=== PATIENT | male | born 1960 | race Caucasian/White ===

== ENCOUNTER 2016-08-25 09:41 | Day surgery (SDC) | payer BC ==
[~2016-08-25] VITALS: Ht 185.4 cm; Wt 97.9 kg
[~2016-08-25 09:41] MED LIST: ATOR10TA64 PO; LIDOCAINE 1% (10mg/ml) 2ml SDV INJ ONE; LR 1,000 ML IV SCH
--- OUTSIDE RECORDS SUMMARY | 2016-08-25 09:44 | XMS REPORT | CCD ---
Author Author GREYSON ENGEL Organization Unknown Address [address], [place] [id number] Phone 0 Care Team Providers Care Accounts Payable Specialist Name Role Phone JOHN OSNI Attending Physician [phone] Vital Signs Unknown. Allergies Unknown. Procedures Unknown. History of Immunizations Unknown. Problems Unknown. Results Unknown. Medications Unknown. Medications Administered Unknown. Encounters Unknown. Social History Smoking Status Code Start Date End Date Never smoker [id number] Patient Decision Aids Unknown. Instructions You were admitted to [facility] on 06/20/2013. Should you have any questions prior to discharge, please contact a member of your healthcare team. If you have left the hospital and have any questions, please contact your primary care physician. Chief Complaint and Reason For Visit Chief Complaint Date of Onset PTH RECURRING Function Status Unknown. Plan of Care Unknown. Referral/Transition of Care Unknown.
--- OUTSIDE RECORDS SUMMARY | 2016-08-25 09:44 | XMS REPORT | Summary of Care ---
Author Author Sofy Dixon Organization Unknown Address [address], [place] [id number] Phone Unavailable Care Team Providers Care Parboiler Name Role Phone Sofy Dixon Unavailable Unavailable Missael Francisco, Kristine Unavailable Unavailable Leo Fuentes Unavailable Unavailable Unavailable Unavailable Functional Status Name Dates Details Functional status health issues are not documented Status: Name Dates Details Cognitive status health issues are not documented Status: Problems Name Dates Details Hypertension (401.9, I10) Status: Active Palpitations (785.1, R00.2) Status: Active Obstructive sleep apnea (327.23, G47.33) Status: Active Medications Name Dates Details Supplies Nocturnal CPAP=7 cm H2O Quantity: 1 Missael Francisco, John Carmona * Start Active Supplies CPAP repair, services, and supplies (dx=G47.33)Mask, headgear, filters, heated tubing, chinstrap * Quantity: 1 Refills: 0 Sofy Dixon * Start Active Allergies and Adverse Reactions Name Dates Details No Known Drug Allergies (Allergy) Status: Active Procedures Procedure Dates Details History of Tonsillectomy Over Age 10 Completed: 27-Aug-2009 Procedures not documented Immunization Name Dates Details Immunizations not documented Family History Name Dates Details Family history of Sleep Apnea Status: Active Family history of Pacemaker Placement Status: Active Social History Name Dates Details - Status: Name Dates Details Never smoker Vital Signs Date Test Result Details 09:28 BP Systolic 116 mm[Hg] Status: Comments: Location: ; Position: BP Diastolic 75 mm[Hg] Status: Comments: Location: ; Position: Heart Rate 55 /min Status: Comments: Location: ; Weight 221 lb Status: Physical Findings 97 Status: Comments: O2 Saturation Body Mass Index Calculated 29.16 kg/m2 Status: Body Surface Area Calculated 2.25 m2 Status: Results Date Description Value Details Results not documented Plan of Care Name Dates Details Planned Observations Planned Goals not documented Planned Encounters Appointment; Provider: Jennie Burden On 08:00 Interventions Provided Medication Changes* Supplies - Renew with Changes Instructions Name Dates Details Instructions not documented Encounters Appointment; Sofy Ragsdale P.A. Encounter Diagnosis: Problem not documented On 09:00 Appointment; Sofy Ragsdale P.A. Encounter Diagnosis: Problem not documented On 08:45
--- OUTSIDE RECORDS SUMMARY | 2016-08-25 09:44 | XMS REPORT | Continuity of Care Document ---
Author Author [facility] Organization [facility] Address Unknown Phone Unavailable Allergies Medications Problems Procedures Results Encounters ACCT No. Visit Date/Time Discharge Status Pt. Type Provider Facility Loc./Unit Complaint [id number] 08/18/2013 13:27:00 08/18/2013 23 :59:59 [facility] Outpatient
--- OUTSIDE RECORDS SUMMARY | 2016-08-25 09:44 | XMS REPORT | CCD ---
Author Author ARIANNA SANTIZO Organization Unknown Address [address], [place] [id number] Phone 0 Care Team Providers Care Residential Care Officer Name Role Phone Leroy MARTELL Attending Physician 0 GIGI BARTLETT Primary Surgeon 0 Vital Signs Unknown or Not Available. Allergies Allergy Code Allergy Type Reaction Status No Known Drug Allergies 0 No known drug allergies Active Procedures Unknown or Not Available. History of Immunizations Unknown or Not Available. Problems Unknown or Not Available. Results Unknown or Not Available. Medications Unknown or Not Available. Medications Administered Unknown or Not Available. Encounters Unknown or Not Available. Social History Smoking Status Code Start Date End Date Never smoker [id number] Patient Decision Aids Unknown or Not Available. Discharge Instructions You were admitted to [facility] on 12/02/2013. You were discharged from [facility] on 12/02/2013. Should you have any questions prior to discharge, please contact a member of your healthcare team. If you have left the hospital and have any questions, please contact your primary care physician. Chief Complaint and Reason For Visit Chief Complaint Date of Onset Laceration Function Status Unknown or Not Available. Plan of Care Unknown or Not Available. Referral/Transition of Care Unknown or Not Available.
--- OUTSIDE RECORDS SUMMARY | 2016-08-25 09:45 | XMS REPORT | Continuity of Care Document ---
Author Author Panchito Dutton MA Ambulatory Address Unknown Phone Unavailable Payers Payer name Insurance type Covered alliance party ID Authorization(s) Unknown Problems Condition Effective Dates (start - stop) Clinical Status Tinnitus - *Acute Bronchitis, Acute - *Acute Billiard Table Mechanic's permit PE (physical examination) - *Routine Family History Family Member Diagnosis Age At Onset Status Father (Unknown) Cancer - colon Yes Mother (Unknown) Hypertension Yes Sister (Unknown) Cancer - breast Yes Social History Social History Element Description Quantity Unknown Allergies, Adverse Reactions, Alerts Substance Reaction Severity Status Unknown Medications Medication Instructions Dosage Effective Dates (start - stop) Status amoxicillin 500 mg capsule take 1 capsule (500MG) by oral route every 12 hours 500 MG - No Longer Active Alavert 10 mg tablet take 1 tablet (10MG) by oral route every day 10 MG - No Longer Active prednisone 20 mg tablet take 1 tablet (20MG) by oral route every day for 5 days 20 MG - No Longer Active Tessalon 200 mg capsule take 1 capsule (200MG) by oral route 3 times every day as needed 200 MG - No Longer Active Alavert 10 mg tablet take 1 tablet (10MG) by oral route every day as needed - Active Immunizations Vaccine Date Status Comments Unknown Results Test Name Date and Time Measure Units Reference Range Abnormal Flag Comments Unknown Vital Signs Date / Time: Height Weight Pulse Rate Blood Pressure Temperature :38:00 74.50 in 231.00 lbs 68 /min 114/78 mm[Hg] 97.0 F Procedures Procedure Date Unknown Encounters Encounter Location Date Patient Visit [facility] Patient Visit [facility] Advance Directives Directive Effective Date Unknown
--- OUTSIDE RECORDS SUMMARY | 2016-08-25 09:45 | XMS REPORT | Summary of Care ---
Author Author Sofy Dixon Organization Unknown Address [address], [place] [phone] Phone Unavailable Care Team Providers Care Cosmetic Counselor Name Role Phone Soyf Dixon Unavailable Unavailable Missael Francisco, Kristine Unavailable Unavailable Leo Fuentes PP Unavailable Unavailable Unavailable Functional Status Functional Status Health Issues* Name Dates Details Functional status health issues are not documented Status: Cognitive Status Health Issues* Name Dates Details Cognitive status health issues are not documented Status: Problems Name Dates Details Hypertension (401.9, I10) Status: Active Palpitations (785.1, R00.2) Status: Active Obstructive sleep apnea (327.23, G47.33) Status: Active Medications Name Dates Details Supplies Nocturnal CPAP=7 cm H2O Quantity: 1 John Canas M.D.* Started ActiveSupplies CPAP repair, services, and supplies (cw=966.23)Mask, headgear, filters, heated tubing, chinstrap * Quantity: 1 Refills: 0 Sofy Ragsdale P.A.* Started Active Allergies and Adverse Reactions Name Dates Details No Known Drug Allergies Status: Active Procedures Procedure Dates Details History of Tonsillectomy Over Age 10 Completed:27-Aug-2009 Procedures not documented Immunization Name Dates Details Immunizations not documented Family History Father* Name Dates Details Family history of Sleep Apnea Status: Active Family history of Pacemaker Placement Status: Active Social History Name Dates Details Smoking Status* Never smoker Vital Signs Date Test Result Details No Known Vitals to report Results Date Description Value Details Results not documented Plan of Care Planned Observations* Name Dates Details Planned Goals not documented Goal Planned Encounters* Appointment; Provider: Sofy Ragsdale On 08:45 * Appointment; Provider: Dominic Tadeo On 17:30 * Appointment; Provider: Davi Chowdhury On 07:30 Instructions * Instructions not documented Encounters Appointment; Sofy Ragsdale Encounter Diagnosis: Problem not documented On 08:45
--- OUTSIDE RECORDS SUMMARY | 2016-08-25 09:45 | XMS REPORT | CCD ---
Author Author ARIANNA SANTIZO Organization Unknown Address [address], [place] [id number] Phone 0 Care Team Providers Care It Admin Name Role Phone LANEY HUBBARD Attending Physician 0 Vital Signs Unknown or Not Available. Allergies Allergy Code Allergy Type Reaction Status No Known Drug Allergies 0 No known drug allergies Active Procedures Unknown or Not Available. History of Immunizations Unknown or Not Available. Problems Unknown or Not Available. Results Unknown or Not Available. Active Medications Unknown or Not Available. Medications Administered During Visit Unknown or Not Available. Encounters Unknown or Not Available. Social History Smoking Status Code Start Date End Date Never smoker [id number] Patient Decision Aids Unknown or Not Available. Discharge Instructions [facility] were admitted to [facility] on 08/03/2014. Should you have any questions prior to discharge, please contact a member of your healthcare team. If you have left the hospital and have any questions, please contact your primary care physician. Chief Complaint and Reason For Visit Chief Complaint Date of Onset PTH RECURRING Function Status Unknown or Not Available. Plan of Care Unknown or Not Available. Referral/Transition of Care Unknown or Not Available.
--- OUTSIDE RECORDS SUMMARY | 2016-08-25 09:45 | XMS REPORT | Summary of Care ---
Author Author Sofy Dixon Organization Unknown Address [address], [place] [id number] Phone Unavailable Care Team Providers Care Combination Man Name Role Phone Sofy Dixon Unavailable Unavailable [...] Started ActiveSupplies CPAP repair, services, and supplies (xa=387.23)Mask, headgear, filters, heated tubing, chinstrap * Quantity: 1 Refills: 0 Sofy Ragsdale* Started Active Allergies and Adverse Reactions Name [...] smoker Vital Signs Date Test Result Details 08:50 BP Systolic 115 mm[Hg] Status: BP Diastolic 57 mm[Hg] Status: Heart Rate 64 /min Status: Weight 221 lb Status: O2 SAT 97 % Status: Body Mass Index Calculated 29.16 kg/m2 Status: Body Surface Area Calculated 2.25 m2 Status: Results Date Description Value Details Results not documented Plan of Care Planned Observations* Name Dates Details Planned Goals not documented Goal Planned Encounters* Appointment; Provider: Sofy Ragsdale On 08:00 * Appointment; Provider: Dominic Tadeo On 17:30 * Appointment; Provider: Davi Chowdhury On 07:30 Instructions * Instructions not documented Encounters Appointment; Sofy Ragsdale Encounter Diagnosis: Problem not documented On 08:45 Appointment; Sofy Ragsdale Encounter Diagnosis: Problem not documented On 08:45
--- OUTSIDE RECORDS SUMMARY | 2016-08-25 09:45 | XMS REPORT | Referral Summary ---
Author Author [facility] Organization [facility] Address Unknown Phone Unavailable Care Team Providers Care Packaging Technician Name Role Phone Leo Fuentes Primary Care Physician [phone] Encounter Date(s): 05/23/16 - 05/23/16 [facility], [address] [place] [id number] Discharge Diagnosis: Acute bacterial bronchitis Discharge Diagnosis: Tinea cruris Discharge Disposition: 01-Home or Self Care Attending Physician: Leo Fuentes DO Admitting Physician: Leo Fuentes DO Vital Signs Most recent to 1 oldest [Reference Range]: Temperature Tympanic 36.6 degC [36.6-38.1 degC] (05/23/16 3:02 PM) Peripheral Pulse 68 bpm Rate [60-100 bpm] (05/23/16 3:02 PM) Respiratory Rate 18 br/min [14-20 br/min] (05/23/16 3:02 PM) Blood Pressure 130/72 mmHg [90-140/60-90 mmHg] (05/23/16 3:02 PM) SpO2 98 % (05/23/16 3:02 PM) Problem List Condition Effective Dates Status Health Status Informant Headache, Active migraine(Confirmed) Sleep Active apnea(Confirmed) Allergies, Adverse Reactions, Alerts No Known Medication Allergies Medications predniSONE 20 mg oral tablet 40 mg 2 tabs, Oral, Daily, X 5 days, # 10 tabs, 0 Refill(s), Pharmacy: [id number], 2 tabs Oral Daily,x5 days Start Date: 05/23/16 Stop Date: 05/28/16 Status: Ordered Zithromax 250 mg oral tablet 250 mg 1 tabs, Oral, Daily, as directed on package labeling, # 6 tabs, 0 Refill( s), Pharmacy: [facility], 1 tabs Oral Daily,Instr:as directed on package labeling Start Date: 05/23/16 Stop Date: 05/23/16 Status: Ordered Results No data available for this section Immunizations No data available for this section Procedures Procedure Date Related Diagnosis Body Site ACL Repair, bilateral knees Arthroscopy of knee Social History Social History Type Response Smoking Status Never smoker Assessment and Plan Extracted from: Title: Office Visit Note Author: TrevLeo granda Date: 05/23/16 Assessment/Plan 1.Tinea cruris 1. The rash along the buttock creases is consistent with tinea. 2. Recommended [id number] Lamisil application. 3. Follow-up for any new concerns. Acute bacterial bronchitis 1. Zithromax taken as directed for 5 days. 2. Prednisone 40 mg daily for 5 days. 3. Continue with Mucinex. Ordered: azithromycin, 250 mg 1 tabs, Oral, Daily, as directed on package labeling, # 6 tabs, 0 Refill(s), Pharmacy: [facility], 1 tabs Oral Daily,Instr :as directed on package labeling predniSONE, 40 mg 2 tabs, Oral, Daily, X 5 days, # 10 tabs, 0 Refill(s), Pharmacy: [facility], 2 tabs Oral Daily,x5 days Office Visit Level 4 Est [id number]
[2016-08-25 10:10] VITALS: BP 132/89; PULSE 71; RESP 14; TEMP 97.9; O2SAT 95; Ht 185.4 cm; Wt 97.9 kg
--- NOTE | 2016-08-25 10:34 | ANESPREOP ---
Anesthesia Record Date and Time DATE: 08/25/16 TIME: 10:32 Pre-Op Diagnosis Hx of Polyps, blood in stool Proposed Surgical Procedure EGD & COLONOSCOPY NPO since: Midnight Allergies: Coded Allergies: No Known Allergies (Unverified , 01/14/11) Ht/Wt/BMI Height: 6 ' 1.00 " Weight: 97.900 kg BMI: 28.5 kg/m2 Vital Signs Date Time Temp Pulse Resp B/P Pulse Ox O2 Delivery O2 Flow Rate FiO2 08/25/16 10:10 97.9 71 14 132/89 95 Room Air Medications Inpatient Medications Current Medications Medications (Trade) Dose Ordered Sig/Juancho Start Time Stop Time Status Last Admin Dose Admin Lactated Ringer's (Lactated Ringers) 1,000 ml @ 50 mls/hr Q20H 08/25/16 07:00 Atorvastatin Calcium (Atorvastatin Calcium) 10 Mg Tablet, 1 TAB PO HS, (Reported ) Last Taken: on 08/23/16 0800 Currently on Beta Jessica: No Medical/Surgical History Anesthesia PMH: Reports: Hyperlipidemia, Sleep Apnea (C-PAP), Denies: *Angina, *Diabetes, *Hypertension, *RI, Anesthesia Reactions (NO AIRWAY ISSUES), Arthritis, Asthma (HX SLEEP APNEA WITH USE OF CPAP AT NIGHT), Blood Transfusion Reac, CHF, COPD, CVA/Stroke/TIA, Cancer, Clotting Problems, Glaucoma, Hiatal Hernia, Malignant Hyperthermia, Pneumonia, Reflux, Renal Disease, Seizures, Thyroid Disease, Tuberculosis Smoking Status: Never smoker Has pt. smoked today?: No Use Chewing Tobacco?: No Second Hand Exposure: No Substance Use Type: does not use Alcohol Intake: none Past Surgical History Orthopedic Surgeries: Yes - BILAT KNEE SCOPES W/ ACL RECONSTRUCTION & Abdominal Surgeries: Genitourinary Surgeries: Cardiac Surgeries: Endocrine Surgeries: Reproductive Surgeries: Neurological Surgeries: Ear Surgeries: Nose Surgeries: Throat Surgeries: Yes - T&A Other Surgeries: Yes - COLONOSCOPY Anesthesia Adverse Reactions: FOUND none Family Hx of Anesthesia Advers: none Hx of Motion Sickness: No Pertinent Findings EKG Rhythm: Sinus Rhythm Physical Exam Respiratory: Lungs clear Cardiovascular: FOUND Regular rate, rhythm Airway Assessment Mallampati Score: II TMD: 3 Fingerbreadths Neck Extension: Good Overall Assessment: No Airway Concerns ASA: 2 Plan Anesthesia Plan: TIVA Discussion Discussed risks/options/alternatives of anesthesia and questions answered. Patient consents. Nursing pain assessment noted. Present: Spouse Attestation Statement Prior to the delivery of any anesthetic medication, I examined the patient, developed the plan, obtained the patient's consent and discussed the risk and benefits of the procedure with the patient/guardian. RUCHI VILA MANAGER [place] Aug 25, 2016 10:34
[2016-08-25] MEDS ORDERED: PROPOFOL 500mg 50 ML IV ONE (10:55)
[2016-08-25] MEDS ORDERED: ALFENTANIL 500mcg/ml - 2ml INJECTION ONE (10:55)
[2016-08-25] MEDS ORDERED: LIDOCAINE VISCOUS 2% Oral Soln 15ml UD ONE (11:10)
[2016-08-25] MEDS ORDERED: PROPOFOL 200mg 20 ML IV ONE (11:55)
[2016-08-25 12:15] VITALS: BP 96/50; PULSE 54; RESP 16; TEMP 98.1; O2SAT 98
--- NOTE | 2016-08-25 12:26 | GSPOSTPROC ---
Immediate Operative Note DATE: 08/25/16 TIME: 12:25 Postop Diagnosis: colon polyp, gastric polyps Surgical Procedure: EGD w/Biopsies, C-scope w/Polypectomy Surgeon: Jayda ASA: 2 MARIAN WADE MD Aug 25, 2016 12:26
[2016-08-25 12:30] VITALS: BP 100/60; PULSE 59; RESP 16; O2SAT 99
[2016-08-25 12:45] VITALS: BP 119/80; PULSE 59; PULSE 63; RESP 14; TEMP 98.7; O2SAT 95; O2SAT 98
--- NOTE | 2016-08-25 12:50 | ANESPO ---
Post-Op Note Date 08/25/16 Time: 12:50 Status Pt Participated in Evaluation: Pt participated in person Vital Signs Date Time Temp Pulse Resp B/P Pulse Ox O2 Delivery O2 Flow Rate FiO2 08/25/16 12:30 59 16 100/60 99 Nasal Cannula 2.00 08/25/16 12:15 98.1 Respiratory Function: Airway patent Cardiovascular Function: Regular pulse Telemetry Pattern: SR Mental Status: Alert/oriented Pain Level Intensity: 0 Hydration: Taking po fluids Complications during Recovery None apparent Follow-Up Instructions Instructions Per Surgeon RUCHI VILA CRNA Aug 25, 2016 12:50
--- NOTE | 2016-08-26 10:49 | OPNOTEF ---
DATE OF OPERATION 08/25/16 PREOPERATIVE DIAGNOSES 1. Hemoccult positive stool on 08/01/16. 2. Recent episode of hematochezia in July 2016. 3. Focal prominence of rectal wall and focal narrowing of the superior aspect of the rectum demonstrated on 08/08/16 CT scan of the abdomen and pelvis. 4. Personal history of tubular adenoma colon polyp. 5. Positive family history of colon carcinoma. 6. Chronic diarrhea. POSTOPERATIVE DIAGNOSES 1. Gastric polyps. 2. Hemoccult positive stool on 08/01/16. 3. Recent episode of hematochezia in July 2016. 4. Personal history of tubular adenoma colon polyp. 5. Positive family history of colon carcinoma. 6. Chronic diarrhea. 7. Colon polyp. 8. Anal fissure. 9. Normal appearance of the rectum at total colonoscopy today. OPERATION Esophagogastroduodenoscopy with biopsies and total colonoscopy with polypectomy and biopsies. SURGEON Dr. Guanakito Montelongo ANESTHESIA TIVA ASA class II FINDINGS The esophagus appeared completely normal. The patient had some small gastric polyps. The stomach otherwise appeared completely normal. The duodenum appeared normal. No source for bleeding which would lead to a Hemoccult positive stool was found at the upper gastrointestinal tract. There is no bright red blood or old blood anywhere at the upper gastrointestinal tract. There were no colon or rectal tumors. The patient had one sigmoid colon polyp. This was a small sessile polyp. There were no rectal polyps. There were no colonic angiodysplasia lesions. Mucosa appeared normal throughout the terminal ileum, colon and rectum. There was no evidence of any inflammatory bowel disease at the terminal ileum, colon or rectum. No bright red blood or old blood was seen anywhere at the colon or rectum at time of procedure today. The rectum had a completely normal appearance. Nothing was found at the rectum to correlate with the findings on the 08/08/16 CT scan of the abdomen, pelvis. The patient does have an anal fissure at 12 o'clock position (with the coccyx present at 12 o'clock position). The anal fissure was thought to be the source for the recent episode of hematochezia. DESCRIPTION OF OPERATION The patient was brought to the endoscopy room. The patient was placed on a cart in the endoscopy room. Topical anesthesia was achieved at the oropharynx in the usual manner. The patient was placed in left lateral recumbent position on the cart. The patient was premedicated with intravenous sedation medication administered by the nurse sheetmetal trades worker. The Olympus upper GI endoscope was used. The Olympus upper GI endoscope was introduced in to the esophagus. The upper GI endoscope was advanced down through the esophagus and stomach and duodenum. The tip of the upper GI endoscope was advanced down through the duodenum beyond the level of the duodenal bulb. Endoscopic biopsy forceps was used to obtain some biopsies of duodenal mucosa at this level. These biopsy specimens of duodenal mucosa were submitted for study by the pathologist. This was that this was done to look for any evidence of celiac disease as cause for chronic diarrhea. The upper GI endoscope was then withdrawn from the duodenum back into the stomach. The upper GI endoscope was retroflexed and the gastroesophageal junction was viewed from below. The upper GI endoscope was straightened out. Stomach was examined further. The endoscopic biopsy forceps was used to remove a couple of the gastric polyps. These two gastric polyps were submitted for study by the pathologist. The upper GI endoscope was then withdrawn out through the stomach and esophagus and removed from the patient. The patient was kept in the left lateral recumbent position on the cart in the endoscopy room. The patient continued to receive intravenous sedation medication administered by the nurse sheetmetal trades worker. Total colonoscopy was performed. The Olympus colonoscope was used. The colonoscope was introduced into the rectum. The colonoscope was advanced up through the rectum and colon all way up to the cecum. The appendiceal orifice was visualized. The ileocecal valve was visualized. The tip of the colonoscope was introduced through the ileocecal valve up into the terminal ileum. The endoscopic biopsy forceps was used to obtain biopsies of mucosa at the terminal ileum. These biopsy specimens were submitted for study by the pathologist. Terminal and mucosa appeared normal. The tip of the upper GI endoscope was then withdrawn from the terminal ileum back out through the ileocecal valve back into the colon. The colonoscope was then withdrawn out through the colon. As the colonoscope was being withdrawn out through the colon, the endoscopic biopsy forceps was used to obtain random biopsies of mucosa at the ascending colon, transverse colon and descending colon. When the tip of the colonoscope had been withdrawn out to the level of the mid sigmoid colon, a small polyp was identified. This polyp was removed with the electrocautery snare device. This polyp was small enough that it was completely incinerated and coagulated and destroyed by removal with the electrocautery snare device. There was not a piece of the pulp left to submit for study by the pathologist after this. This did completely remove the polyp. The endoscopic biopsy forceps was then used to obtain biopsies of mucosa at the sigmoid colon. The tip of the colonoscope was withdrawn down into the rectum. The endoscopic biopsy forceps was used to obtain biopsies of mucosa at the rectum. These biopsy specimens were submitted for study by the pathologist. All these biopsies were performed at the terminal ileum and colon and rectum to look for any cause for the chronic diarrhea. Biopsies performed at the colon or rectum to look for any evidence of microscopic colitis such as collagenous colitis or lymphocytic colitis as a cause for diarrhea. The colonoscope was then removed from the rectum. Digital rectal examination was performed. An anal fissure was noted to be present at this time. Findings throughout the procedure were as described above. The patient did continue to receive intravenous sedation medication administered by the nurse sheetmetal trades worker throughout the operation. The patient did tolerate the operation well. MADELEINE
== END 2016-08-25 13:14 | disposition home or self-care (01) ==
LOC: SCU 09:41
PROVIDERS: ATTEND Surgery
DX: K63.5 Polyp of colon (principal); K52.9 Noninfective gastroenteritis and colitis, unspecified; K60.2 Anal fissure, unspecified; K92.1 Melena; Z86.010 Personal history of colon polyps; Z80.0 Family history of malignant neoplasm of digestive organs; K31.7 Polyp of stomach and duodenum; G47.30 Sleep apnea, unspecified; Z99.89 Dependence on other enabling machines and devices; E78.5 Hyperlipidemia, unspecified; Z79.1 Long term (current) use of non-steroidal anti-inflammatories (NSAID); Z79.899 Other long term (current) drug therapy
CPT/HCPCS: 43239; 45380; 45385; J2704